=== PATIENT | male | born 1975 | race Caucasian/White ===

== ENCOUNTER → 2018-06-13 | Outpatient (CLI) | payer SELFPAY ==
--- NOTE | 2018-06-13 12:10 | REP ---
Clinical: Trauma with medial sided wound. Technique: AP, lateral, bilateral oblique and sunrise views left knee . Findings: The osseous structures and joint spaces are intact and normal. There is no evidence for acute fracture or dislocation. No subcutaneous emphysema or radiodense foreign body appreciated. Small suprapatellar effusion cannot be excluded. Anterior soft tissue swelling noted. Impression: Anterior prepatellar soft tissue swelling. No acute fracture dislocation. No subcutaneous emphysema or foreign body. Electronically Signed by Robbie Farmer MD 06/13/2018 12:01 P
== END ==
LOC: M LRY 11:13
PROVIDERS: ATTEND Nurse Practitioner Family
DX: R60.0 Localized edema (principal); S89.92XA Unspecified injury of left lower leg, initial encounter; Y92.89 Other specified places as the place of occurrence of the external cause; Y93.89 Activity, other specified; X58.XXXA Exposure to other specified factors, initial encounter; Y99.8 Other external cause status